=== PATIENT | female | born 1980 | race Caucasian/White ===

== ENCOUNTER 2023-12-02 17:58 | Emergency (ER) | payer MEDICAID ==
[~2023-12-02] VITALS: Ht 175.3 cm; Wt 89.6 kg
[2023-12-02 18:03] VITALS: BP 121/74; PULSE 69; TEMP 98.5; O2SAT 98
[2023-12-02 19:15] VITALS: RESP 16
[2023-12-02] MEDS: ketorolac trometh 30MG/ML vial 30 MG/ML VIAL IM ONE (19:15)
== END 2023-12-02 19:18 | disposition home or self-care (01) ==
LOC: ER 18:04
DX: M72.2 Plantar fascial fibromatosis (principal); Z88.2 Allergy status to sulfonamides
CPT/HCPCS: 96372; 99283; J1885